=== PATIENT | female | born 1940 | race Caucasian/White ===

== ENCOUNTER 2020-07-26 12:15 | Emergency (ER) | payer MEDICARE, OTHER, SELFPAY ==
[2020-07-26 12:16] VITALS: BP 135/98; PULSE 100; RESP 18; O2SAT 96
[2020-07-26 12:23] VITALS: BP 161/89; PULSE 110; RESP 18; TEMP 36.9; O2SAT 95; BMI 18.0
--- NOTE | 2020-07-26 12:29 | CT_ITS ---
WS: [id number] CT ABDOMEN PELVIS TECHNIQUE: Contrast-enhanced CT of the abdomen and pelvis with coronal and sagittal reformatted image s. CLINICAL INFORMATION: abd pain COMPARISON: None. DLP: 234.[address] scans at [facility] use at least one of these dose optimization techniques: automat ed exposure control; mA and/or kV adjustment per patient size (includes targeted exams where dose is matched to clinical indication); or iterative reconstruction. FINDINGS: Mild thickening and induration involving the sigmoid colon suspicious for mild acute divert iculitis. No evidence of small large bowel obstruction. Mass effect on the sigmoid colon from the pre sumed large left calcified uterine fibroid. Mild diffuse fatty infiltration of the liver. Portal vein and splenic vein are patent. Normal spleen. Normal GE junction. Slight hazy groundglass infiltrates in the left lower lobe and lingula. Slight a telectasis with slight groundglass infiltrates right lower lobe. Adrenal glands are normal. Normal renal parenchymal enhancement. No hydronephrosis. Tiny left renal c yst. Normal gallbladder. Mild aortic calcification. Normal caliber abdominal aorta. Large calcified fibroid in the pelvis measuring 6.5 x 5.1 x 5.1 CM AP by transverse by craniocaudal. Left to right mass effect on the endometrium and cervix. Fluid in the endometrial canal. Associated mass effect on the bladder. No evidence of small or large bowel obstruction. No periaortic or inguinal lymphadenopathy. No pelvic lymphadenopathy. Grade 1 anterolisthesis L4 on L5 measuring 7 [address]/CT abdomen pelvis w con* [id number] IMPRESSION: 1. Mild thickening and induration involving the sigmoid colon consistent with mild acute diverticulitis. 2. Large calcified mass in the pelvis likely uterine fibroid measuring 5.1 x 6 .5 x 5.1 CM. Mass effect on the uterus and cervix left to right. Fluid in the e ndometrial canal. Pelvic findings can be followed up with ultrasound. 3. Osteoporosis 4. Slight hazy groundglass infiltrates and atelectasis in the lung bases. Yvette elation for pneumonitis. 5. Grade 1 anterolisthesis L4 on L5 with moderate central canal stenosis. Notified Janis Wen MD at 07/26/2020 2:12 PM.
--- NOTE | 2020-07-26 12:40 | ED_ITS ---
HPI - General Adult General: Chief complaint: General Medical Stated complaint: vaginal/rectal bleeding Time Seen by Provider: 07/26/20 12:29 Source: patient Mode of arrival: ambulatory Limitations: no limitations History of Present Illness: HPI narrative: 79-year-old female states she has had some blood in her stool starting today. States it is a small amount and is bright red. She does have a history of hemorrhoids. She denies any worsening or improving factors. Patient denies any abdominal pain. She is scheduled for an outpatient CT today at 1. Denies any fevers. Associated symptoms: Deny chest pain, dyspnea, headache(s) or rash Review of Systems Const: Denies: fever(s), chills, body aches or change in appetite Eyes: Denies: blurry vision or eye discomfort ENMT: Denies: throat pain or dental pain Card: Denies: chest pain Resp: Denies: dyspnea GI: Reports: hematochezia : Denies: dysuria Musc: Denies: neck pain or back pain Skin/Breast: Denies: rash Neuro: Denies: headache(s) Psych: Denies: depression Jonathan/Lymph: Denies: easy bruising All/Imm: Denies: urticaria PFSH ED PFSH: Social History (Updated 07/26/20 @ 12:27 by Aamir Connell RN) Smoking and tobacco status: never smoked Alcohol intake: never Substance/Drug Use: never Physical Exam Const: COMMON NORMALS: no acute distress, patient oriented x3 and healthy appearing HENMT: COMMON NORMALS: normocephalic and atraumatic HEAD & SCALP: normocephalic and atraumatic Eye: COMMON NORMALS: Equal, round and reactive pupils present and EOMs intact bilaterally PUPIL: Yes Equal, round and reactive pupils present Neck/C-Spine: COMMON NORMALS: full ROM and supple Chest: COMMONS NORMALS: normal inspection of the chest and normal palpation of entire chest wall Resp: COMMON NORMALS: normal respiratory effort, No retractions, No use of accessory muscles and clear to auscultation bilaterally AUSCULTATION: clear to auscultation bilaterally Cardio: COMMON NORMALS: regular rate, regular rhythm and No murmurs present (Cardio) RATE: regular rate RHYTHM: regular rhythm GI: COMMON NORMALS: Normal to inspection, nondistended, normoactive bowel sounds present, Soft to palpation, non-tender and no masses PALPATION: Yes Soft to palpation : OTHER: Rectal hemorrhoids noted with very slight amount of blood from them Extremity: COMMON NORMALS: normal to inspection and full ROM Neuro: COMMON NORMALS: patient oriented x3, moves all extremities and no focal motor deficits Psych: COMMON NORMALS: mental status grossly normal, Normal thought process present and cooperative THOUGHT PROCESS: Normal thought process present Skin: COMMON NORMALS: no rashes or lesions noted and no wounds GENERAL SKIN EXAM: no rashes or lesions noted Course Vital Signs: Vital signs: Vital Signs Temperature 98.4 F 07/26/20 12:23 Pulse Rate 101 H 07/26/20 12:59 Respiratory Rate 16 07/26/20 12:59 Blood Pressure 137/81 07/26/20 12:59 Pulse Oximetry 96 07/26/20 12:59 MDM - General Adult MDM Narrative: Medical decision making narrative: Shae presents here with rectal bleeding likely from her hemorrhoid. She has no signs of large amount of bleeding and hemoglobin is normal. CT shows mild diverticulitis we will start her on Augmentin. She also has a pelvic mass informed her she needs to follow- up with PCP with. She understands and agrees to plan. She is to return if worsening. Lab Data: Labs: Lab Results 07/26/20 07/26/20 Range/Units 12:50 12:50 WBC 13.0 H (4.0-10.0) 10^3/ uL RBC 3.75 L (4.1-5.3) 10^6/u L Hgb 10.9 L (11.5-15.3) g/dL Hct 32.7 L (37.0-47.0) % MCV 87.2 (81-99) fL MCH 29.1 (28.0-34.0) pg MCHC 33.3 (30.0-36.0) g/dL RDW 12.3 (12.1-15.1) % Plt Count 475 H (130-400) 10^3/c mm MPV 8.3 (7.4-10.4) fL Neut % (Auto) 76.7 % Lymph % (Auto) 12.9 % [place] % (Auto) 9.5 % Eos % (Auto) 0.1 % Baso % (Auto) 0.3 % Neut # (Auto) 9.97 H (1.8-7.7) 10^3/u L Lymph # (Auto) 1.7 (0.8-4.8) 10^3/u L [place] # (Auto) 1.2 H (0.2-0.9) 10^3/u L Eos # (Auto) 0.0 (0.0-0.8) 10^3/u L Baso # (Auto) 0.0 (0.0-0.1) 10^3/u L Nucleated RBC % (a uto) 0 % Nucleated RBCs # 0.0 /100WBC Sodium 130 L (136-145) mmol/L Potassium 3.6 (3.5-5.1) mmol/L Chloride 93 L (98-107) mmol/L Carbon Dioxide 27 (22-29) mmol/L Anion Gap 13.6 (5-19) BUN 8 (8-23) mg/dL Creatinine 0.5 (0.5-0.9) mg/dL GFR Calculation Not Reportable Glucose 111 (65-115) mg/dL Calculated Osmolal ity 269 L (285-295) mOsm/k g Calcium 8.7 (8.5-10.5) mg/dL Total Bilirubin 0.5 (0.15-1.2) mg/dL AST 37 H (0-32) U/L ALT 43 H (0-33) U/L Alkaline Phosphata se 83 (35-105) IU/L Total Protein 6.1 L (6.6-8.7) g/dL Albumin 3.1 L (3.5-5.2) g/dL Globulin 3.0 (1.3-4.6) g/dL Imaging Data^: CT Abd/Pel: Attestation: I personally reviewed and interpreted this imaging study as follows: Radiologist's impression: [address] [address] [address] Scan Report Signed Patient: Shae Wong Unit #: [id number] : 1940 Age/Sex: 79 / F ADM Date: 07/26/20 Loc: ER Room/Bed: Attending Dr: Ordering Provider/Ordering MD: Janis Wen MD Date of Service: 07/26/20 Procedure(s): CT abdomen pelvis w con* [id number] Accession Number(s): [id number] Report Number: [id number] WS: [id number] CT ABDOMEN PELVIS TECHNIQUE: Contrast-enhanced CT of the abdomen and pelvis with coronal and sagittal reformatted images. CLINICAL INFORMATION: abd pain COMPARISON: None. DLP: 234.[address] scans at [facility] use at least one of these dose optimization techniques: automated exposure control; mA and/or kV adjustment per patient size (includes targeted exams where dose is matched to clinical indication); or iterative reconstruction. FINDINGS: Mild thickening and induration involving the sigmoid colon suspicious for mild acute diverticulitis. No evidence of small large bowel obstruction. Mass effect on the sigmoid colon from the presumed large left calcified uterine fibroid. Mild diffuse fatty infiltration of the liver. Portal vein and splenic vein are patent. Normal spleen. Normal GE junction. Slight hazy groundglass infiltrates in the left lower lobe and lingula. Slight atelectasis with slight groundglass infiltrates right lower lobe. Adrenal glands are normal. Normal renal parenchymal enhancement. No hydronephrosis. Tiny left renal cyst. Normal gallbladder. Mild aortic calcification. Normal caliber abdominal aorta. Large calcified fibroid in the pelvis measuring 6.5 x 5.1 x 5.1 CM AP by transverse by craniocaudal. Left to right mass effect on the endometrium and cervix. Fluid in the endometrial canal. Associated mass effect on the bladder. No evidence of small or large bowel obstruction. No periaortic or inguinal lymphadenopathy. No pelvic lymphadenopathy. Grade 1 anterolisthesis L4 on L5 measuring 7.[address]/CT abdomen pelvis w con* [id number] IMPRESSION: 1. Mild thickening and induration involving the sigmoid colon consistent with mild acute diverticulitis. 2. Large calcified mass in the pelvis likely uterine fibroid measuring 5.1 x 6.5 x 5.1 CM. Mass effect on the uterus and cervix left to right. Fluid in the endometrial canal. Pelvic findings can be followed up with ultrasound. 3. Osteoporosis 4. Slight hazy groundglass infiltrates and atelectasis in the lung bases. Correlation for pneumonitis. 5. Grade 1 anterolisthesis L4 on L5 with moderate central canal stenosis. Discharge Plan Discharge Patient Disposition: Home Clinical Impression: Diverticulitis, Pelvic mass Hemorrhoid Qualifiers: Hemorrhoid type: unspecified Qualified Code(s): K64.9 - Unspecified hemorrhoids Condition: Stable Prescriptions: New Augmentin 875-125 mg tablet 1 tab PO BID Qty: 14 RF: 0 No Action Multiple Vitamins Tablet 1 tab PO DAILY RF: 0 atorvastatin 10 mg tablet 10 mg PO DAILY RF: 0 meloxicam 15 mg tablet 15 mg PO DAILY RF: 0 omeprazole 20 mg capsule,delayed release(DR/EC) 20 mg PO DAILY RF: 0 Tylenol 1 tab PO PRN RF: 0 Discharge Orders: Discharge Order (Routine); Ordered 07/26/20 Ordered By: Janis Wen Referrals: Ruben Arnold MD [Primary Care Provider] - 1-3 days Discharge Diet: Advance as tolerated Discharge Activity: Resume usual activity Patient Instructions: Diverticulitis (ED), Hemorrhoids (ED) Coding Level of Care Code ED Carbon Paper Coating Supervisor for Chg Fwd Exam Comprehensive
[2020-07-26 12:58] LABS: Basophils % 0.3 %; Eosinophils % 0.1 %; Hematocrit 32.7 % (37.0-47.0); Hemoglobin 10.9 g/dL (11.5-15.3); Lymphocytes # 1.7 10^3/uL (0.8-4.8); Lymphocytes % 12.9 %; Mean Corpuscular HGB Conc 33.3 g/dL (30.0-36.0); Mean Corpuscular Hemoglobin 29.1 pg (28.0-34.0); Mean Corpuscular Volume 87.2 fL (81-99); Mean Platelet Volume 8.3 fL (7.4-10.4); Monocytes # 1.2 10^3/uL (0.2-0.9); Monocytes % 9.5 %; Neutrophils # 9.97 10^3/uL (1.8-7.7); Neutrophils % 76.7 %; Nucleated Red Blood Cells % 0 %; Platelet Count 475 10^3/cmm (130-400); Red Blood Count 3.75 10^6/uL (4.1-5.3); Red Cell Distribution Width 12.3 % (12.1-15.1)
[2020-07-26 12:59] VITALS: BP 137/81; PULSE 101; RESP 16; O2SAT 96
[2020-07-26 13:15] LABS: Alanine Aminotransferase 43 U/L (0-33); Albumin Level 3.1 g/dL (3.5-5.2); Alkaline Phosphatase 83 IU/L (35-105); Anion Gap 13.6 (5-19); Aspartate Amino Transferase 37 U/L (0-32); Blood Urea Nitrogen 8 mg/dL (8-23); Calcium 8.7 mg/dL (8.5-10.5); Carbon Dioxide 27 mmol/L (22-29); Chloride 93 mmol/L (98-107); Creatinine Clr Calc Pharmacy 45.9273; Glucose 111 mg/dL (65-115); Osmolality Calculated 269 mOsm/kg (285-295); Potassium 3.6 mmol/L (3.5-5.1); Sodium 130 mmol/L (136-145); Total Bilirubin 0.5 mg/dL (0.15-1.2); Total Protein 6.1 g/dL (6.6-8.7)
[2020-07-26] MEDS: iohexol 300 mg/mL 100 mL Btl IV (13:41)
[2020-07-26 14:30] VITALS: BP 133/82; PULSE 96; RESP 16; TEMP 36.6; O2SAT 96
== END 2020-07-26 14:33 | disposition home or self-care (01) ==
PROVIDERS: Emergency Provider Emergency Medicine; Family Provider Family Medicine; PCP Family Medicine
DX: K57.92 Diverticulitis of intestine, part unspecified, without perforation or abscess without bleeding (principal); R19.00 Intra-abdominal and pelvic swelling, mass and lump, unspecified site; K64.9 Unspecified hemorrhoids
CPT/HCPCS: 12345; 74177; 80053; 85025; 99282; 99283; Q9967

== ENCOUNTER 2020-10-06 04:45 | Observation (INO) | payer MEDICARE, OTHER, SELFPAY ==
[2020-10-06] VITALS (15 sets, daily range): BP systolic 107–137; BP diastolic 59–77; PULSE 89–116; RESP 16–18; TEMP 36.7–37.1; O2SAT 94–97; BMI 18.8
--- NOTE | 2020-10-06 04:55 | CTR_ITS ---
PROCEDURE INFORMATION: Exam: CT Abdomen And Pelvis With Contrast Exam date and time: 10/06/2020 5:47 AM Age: 79 years old Clinical indication: Abdominal pain; Generalized TECHNIQUE: Imaging protocol: Computed tomography of the abdomen and pelvis with intravenous contrast. Radiation optimization: All CT scans at this facility use at least one of these dose optimization techniques: automated exposure control; mA and/or kV adjustment per patient size (includes targeted exams where dose is matched to clinical indication); or iterative reconstruction. Contrast material: OMNI 300; Contrast volume: 75 ml; Contrast route: INTRAVENOUS (IV); COMPARISON: CT abdomen pelvis w con* [id number] 07/26/2020 1:34 PM RADIATION DOSE METRICS: Total DLP (mGy-cm): 194.75 FINDINGS: Liver: Fatty change is present in the liver which is enlarged measuring 21 cm in length. No mass. Gallbladder and bile ducts: Normal. No calcified stones. No ductal dilation. Pancreas: Normal. No ductal dilation. Spleen: Normal. No splenomegaly. Adrenal glands: Normal. No mass. Kidneys and ureters: Normal. No hydronephrosis. Stomach and bowel: Unremarkable. No obstruction. Large amount of fecal residue is present in the colon. Appendix: The appendix is not discretely seen. Intraperitoneal space: Unremarkable. No free air. No significant fluid collection. Vasculature: Calcifications are noted. No abdominal aortic aneurysm. Lymph nodes: Unremarkable. No enlarged lymph nodes. Urinary bladder: Unremarkable as visualized. Reproductive: A large calcified fibroid is seen in the uterus measuring 7 x 5 cm. Bones/joints: Degenerative changes and levoscoliosis is present. No acute fracture. Soft tissues: Unremarkable. CT/CT abdomen pelvis w con* [id number] IMPRESSION: 1. No acute findings. 2. Hepatomegaly with fatty change is again seen. 3. A calcified fibroid is seen in the uterus, unchanged. 4. Constipation is present. 5. Degenerative changes with levoscoliosis is seen in the lumbar spine Radiation Dose CTDIVOL = (mGy): DLP = 194.75 (mGy-cm)
--- NOTE | 2020-10-06 04:56 | ECG_ITS ---
[facility] Test Date: 2020-10-06 Pat Name: Shae Wong Department: Room: Gender: Female Supervisor Post Wave: : 1940 Requested By: Nga Cardoso Order Number: [id number] Joceline MD: Jahaira Courtney M.D. Measurements Intervals [place] Rate: 106 P: 61 MI: 127 QRS: 8 QRSD: 109 T: 66 QT: 326 QTc: 434 Interpretive Statements SINUS TACHYCARDIA ABNORMAL RHYTHM ECG No previous ECG available for comparison Electronically Signed On 10-06-2020 19:14:08 SPEEDOMETER MECHANIC by Jahaira Courtney M.D. [id number]
--- NOTE | 2020-10-06 04:58 | W.ED.GENADLT ---
HPI - General Adult General: Chief complaint: General Medical Stated complaint: bleeding hemorrhoids Time Seen by Provider: 10/06/20 04:46 Source: patient and EMS Mode of arrival: EMS Limitations: altered mental status (Dementia) History of Present Illness: HPI narrative: Shae is a very nice 79-year-old female brought in by EMS with report of bleeding hemorrhoids. EMS reports family called them because the patient was having bleeding from her hemorrhoids intermittently throughout the night. No family is here at this time and all history is taken from EMS. The patient has dementia and when asked straightforward questions she seems to be confused and asks me questions about where she is at. Patient was noted to be tachycardic in route but not hypotensive. EMS noted blood in a chair the patient was sitting we did not undress her to evaluate for the bleeding. IV was established in route. All further history is taken from old charts. Review of Systems General: Reports: ROS unobtainable due to mental status (Dementia) PFS ED PFSH: Medical History (Updated 10/06/20 @ 05:00 by Nga Farfan) Dementia Diverticulosis GERD (gastroesophageal reflux disease) Hyperlipidemia Social History (Updated 07/26/20 @ 12:27 by Aamir Connell RN) Smoking and tobacco status: never smoked Alcohol intake: never Physical Exam Const: COMMON NORMALS: no acute distress, no limitations and alert GENERAL APPEARANCE: cooperative HENMT: COMMON NORMALS: normocephalic, atraumatic, external ears normal, EAC's normal and Normal external nose present HEAD & SCALP: normal to inspection, normocephalic and atraumatic FACE & SINUS: normal facial exam and face symmetric NOSE: Normal external nose present and Normal nares present EXTERNAL EAR: Yes external ears normal EXTERNAL AUDITORY CANAL: EAC's normal MOUTH: Normal oral and palatal mucosa present, lip normal and tongue normal Eye: COMMON NORMALS: Equal, round and reactive pupils present and conjunctivae normal GENERAL EYE: appearance normal, both eyes and all related structures ALIGNMENT: Yes alignment normal PERIORBITAL: periorbital findings normal EYELID: eyelids normal CONJUNCTIVA: Yes conjunctivae normal SCLERA: sclerae normal PUPIL: Yes Equal, round and reactive pupils present Neck/C-Spine: COMMON NORMALS: full ROM, no lymphadenopathy, supple, no meningeal signs and no JVD GENERAL: Yes normal visual inspection and Yes trachea midline Chest: COMMONS NORMALS: normal inspection of the chest and normal palpation of entire chest wall Resp: COMMON NORMALS: normal respiratory effort, No retractions, No use of accessory muscles and clear to auscultation bilaterally EFFORT & INSPECTION: Yes able to speak in complete sentences and Yes symmetric chest movement AUSCULTATION: clear to auscultation bilaterally, no crackles, no rales, no rhonchi and no wheezes Cardio: COMMON NORMALS: no JVD, regular rate, regular rhythm, S1 normal heart sound present and S2 normal heart sound present RATE: regular rate RHYTHM: regular rhythm HEART SOUNDS: S1 normal heart sound present, S2 normal heart sound present, no click, no gallops, no murmurs and no rubs GI: COMMON NORMALS: Soft to palpation and No hepatosplenomegaly present PALPATION: Yes Soft to palpation, Yes Tenderness to palpation present (GI) (Mild bilaterally in the lower quadrants without rebound or guarding.), No Guarding due to palpation present (GI), No Rigid due to palpation, Yes No hepatosplenomegaly present, No Hernia present, No Palpable mass present and No Pulsatile mass present RECTAL EXAM: normal sphincter tone, heme positive stool gross blood, External hemorrhoid(s) present (Noninflamed, nontender and no active bleeding), No Rectal prolapse and Laceration(s) present (GI) OTHER: No evidence of bleeding from external hemorrhoids. Rectal exam revealed light brown stool mixed with large amounts of bright red blood : COMMON NORMALS: Yes no CVA tenderness BLADDER/KIDNEY EXAM: Yes no CVA tenderness EXTERNAL FEMALE EXAM: No Hernia present Back/Pelvis: COMMON NORMALS: no CVA tenderness, thoracic and lumbar spine normal to inspection, no thoracic nor lumbar tenderness and thoraco-lumbar ROM normal Extremity: COMMON NORMALS: normal to inspection, full ROM, capillary refill normal, no joint enlargement, no clubbing, cyanosis or edema and no calf tenderness Neuro: COMMON NORMALS: CN's II-XII intact bilaterally, moves all extremities, no focal motor deficits and no sensory deficits noted SENSORIUM/ORIENTATION: Yes alert MENINGEAL SIGNS: Yes no meningeal signs SPEECH: speech normal Skin: COMMON NORMALS: no rashes or lesions noted, turgor normal, no jaundice, no petechiae and no mottling GENERAL SKIN EXAM: no rashes or lesions noted and turgor normal Course Vital Signs: Vital signs: Vital Signs Temperature 98.1 F 10/06/20 04:45 Pulse Rate 116 H 10/06/20 04:45 Respiratory Rate 18 10/06/20 04:45 Blood Pressure 122/77 10/06/20 04:45 Pulse Oximetry 95 10/06/20 04:45 MDM - General Adult Lab Data: Attestation: I reviewed the patient's lab results. EKG Data^: EKG 1: Attestation: I personally reviewed and interpreted this EKG as follows: EKG interpretation date: 10/06/20 EKG interpretation time: 05:01 Interpretation: Sinus tachycardia 106 beats a minute, normal axis, no blocks, normal intervals, no acute ST or T wave changes. Discharge Plan Discharge Prescriptions: No Action Multiple Vitamins Tablet 1 tab PO DAILY RF: 0 atorvastatin 10 mg tablet 10 mg PO DAILY RF: 0 meloxicam 15 mg tablet 15 mg PO DAILY RF: 0 omeprazole 20 mg capsule,delayed release(DR/EC) 20 mg PO DAILY RF: 0 Tylenol 1 tab PO PRN RF: 0 Augmentin 875-125 mg tablet 1 tab PO BID Qty: 14 RF: 0 Coding Level of Care Code ED Tufting Machine Operator for Chg Fwd Exam Comprehensive
--- NOTE | 2020-10-06 05:07 | PC.NURSE ---
Nurse at bedside
[2020-10-06 05:12] LABS: INR 0.99 (0.8-1.2)
[2020-10-06 05:13] LABS: Partial Thromboplastin Time 28.8 SECONDS (23.9-36.7)
[2020-10-06 05:24] LABS: Alanine Aminotransferase 13 U/L (0-33); Albumin Level 2.9 g/dL (3.5-5.2); Alkaline Phosphatase 126 IU/L (35-105); Anion Gap 15.7 (5-19); Aspartate Amino Transferase 14 U/L (0-32); Blood Urea Nitrogen 15 mg/dL (8-23); Calcium 8.7 mg/dL (8.5-10.5); Carbon Dioxide 27 mmol/L (22-29); Chloride 91 mmol/L (98-107); Creatinine Clr Calc Pharmacy 46.7305; Globulin 2.8 g/dL (1.3-4.6); Glucose 143 mg/dL (65-115); Osmolality Calculated 273 mOsm/kg (285-295); Potassium 3.7 mmol/L (3.5-5.1); Sodium 130 mmol/L (136-145); Total Protein 5.7 g/dL (6.6-8.7)
[2020-10-06 05:28] LABS: Troponin(5th) Baseline 21 ng/L (0-10)
[2020-10-06 05:30] LABS: Basophils # 0.2 10^3/uL (0.0-0.1); Basophils % 0.7 %; Hematocrit 32.1 % (37.0-47.0); Hemoglobin 10.2 g/dL (11.5-15.3); Lymphocytes # 2.7 10^3/uL (0.8-4.8); Lymphocytes % 12.5 %; Mean Corpuscular HGB Conc 31.8 g/dL (30.0-36.0); Mean Corpuscular Hemoglobin 25.6 pg (28.0-34.0); Mean Corpuscular Volume 80.7 fL (81-99); Mean Platelet Volume 8.3 fL (7.4-10.4); Monocytes # 1.2 10^3/uL (0.2-0.9); Monocytes % 5.7 %; Neutrophils # 17.35 10^3/uL (1.8-7.7); Neutrophils % 80.5 %; Nucleated Red Blood Cells % 0 %; Platelet Count 660 10^3/cmm (130-400); Red Blood Count 3.98 10^6/uL (4.1-5.3); Red Cell Distribution Width 15.8 % (12.1-15.1); White Blood Count 21.6 10^3/uL (4.0-10.0)
[2020-10-06 05:32] LABS: Add Urine Microscopic? NO
[2020-10-06] MEDS: pantoprazole 40 mg SDV 80 MG IVP (05:35)
[2020-10-06] MEDS: sodium chloride 0.9% 1,000 ML 100 ML IV (05:37)
--- NOTE | 2020-10-06 05:40 | PC.NURSE ---
Orthostatic blood pressure order on hold per Dr GUARDADO at [id number]
[2020-10-06] MEDS: iohexol 300 mg/mL 100 mL Btl IV (05:48)
[2020-10-06 05:53] LABS: Bilirubin Urine 1+ (Negative); Blood Urine Neg (Negative); Glucose Urine UA Norm (Normal); Ketones Urine 1+ (Negative); Leukocyte Esterase Urine Negative (Negative); Nitrate Urine Negative (Negative); Protein Urine Neg (Negative); Specific Gravity, Urine 1.015 (1.005-1.030); Urine Appearance Clear (CLEAR); Urine Color Yellow (Yellow); Urobilinogen Urine 4 mg/dL (Negative); pH Urine 6.5 (5-7)
[2020-10-06] MEDS: piperacillin-tazobactam 3.375 GM in sodium chloride 0.9% (plus) 50 ML IV ×2 (06:00→12:02)
--- NOTE | 2020-10-06 06:56 | ECG_ITS ---
[facility] Test Date: 2020-10-06 Pat Name: Shae Wong Department: Room: Gender: Female Lighthouse Keeper: : 1940 Requested By: Nga Cardoso Order Number: [id number] Joceline MD: Jahaira Courtney M.D. Measurements Intervals [place] Rate: 96 P: 57 MD: 128 QRS: 8 QRSD: 85 T: 61 QT: 346 QTc: 439 Interpretive Statements SINUS RHYTHM NONSPECIFIC T-WAVE ABNORMALITY Compared to ECG 10/06/2020 05:01:04 T-wave abnormality now present Sinus tachycardia no longer present Electronically Signed On 10-06-2020 19:29:56 BLASTING HELPER by Jahaira Courtney M.D. [email or web address] [email or web address] [id number]
[2020-10-06] MEDS: D5-NS 0.45% + KCL 20 mEq 20 MEQ/1,000 ML BAG 100 MEQ IV (08:48)
--- NOTE | 2020-10-06 09:38 | PC.CHAP ---
Pastoral Care Encounter/Spiritual Assessment Type of Contact [] Declined box worker visit [] Patient/Family/Request visit [] Outpatient visit [] Follow-up visit [] Physician referral [] Code/Alert [] Routine visit [] Staff referral [] Actively dying [x] Patient sleeping [] Family support [] [] Out of room [] Palliative care [] [] Receiving care in room [] Pre-surgical visit [] Trauma [] Long length of stay [] ICU visit [] Other: Relational/Emotional Strength [] Patient feels connected with others/family/visitors/staff [] Distress [] Loneliness/isolation [] Abandonment Spirituality of Patient [] Person of Shanta [] Attends [employer] of their Shanta [] Believes in Prayer [] Reads Bible or Lutheran materials [] There are Spiritual issues to be addressed Tire Fixer Interventions [] Prayer [] Active listening [] Non-anxious presence [] Spiritual/emotional support [] Crisis/trauma care [] Spiritual counseling [] Bereavement support [] Provided bereavement packet [] Provided Bible/devotional materials [] Provided toy/stuffed animal, coloring book to patient or family member [] Provided Communion [] Anointing/[place] [] Salvation [] Completed spiritual assessment [] Other: Impact on Illness or Injury [] Angry [] Fearful [] Anxious [] Often cries [] Exhaustion [] Unable to work [] Unable to attend congregation [] Unable to walk/stand [] Unable to read [] Unable to drive [] Unable to eat/drink [] Unable to sleep [] Unable to be with family [] Patient intubated [] Other: Summary Time spent with patient
--- NOTE | 2020-10-06 10:30 | P.HP_ITS ---
Providers/Chief Complaint Admitting Physician: Mookie Rodriguez MD Primary Care Provider: Ruben Arnold MD Chief Complaint: bleeding hemorrhoids History of Present Illness Shae Wong is a 79 year old female who presents to the emergency department with history of some blood in her stool. Patient has significant dementia and it is difficult to get further history from her. Apparently she was tachycardic in the ER but otherwise stable. In the emergency department they noted brown stool, with bright red blood mixed in. Family reports they did not really have any concerns with her until last night. At that time she had quite a bit of blood with stool. She occasionally will have some bleeding from a hemorrhoid which they are treating but none mixed in with stool. She has been constipated. She has not had any vomiting, fever, Covid. Family believes she had a colonoscopy over 5 years ago that showed only diverticuli Review of Systems General: Reports: ROS unobtainable due to mental status (Unable to obtain secondary to patient's dementia) Medications/Allergies Home Medications Medication Instructions Recorded Confirmed Last Taken Type atorvastatin 10 mg PO DAILY@07/26/20 10/06/20 07/25/20 History meloxicam 15 mg PO DAILY@07/26/20 10/06/20 07/25/20 History hydrocortisone [Anusol-HC] 1 applic [place] BID@10/06/20 10/06/20 Unknown History pantoprazole 40 mg PO BID@,17 10/06/20 10/06/20 Unknown History Allergies Allergy/AdvReac Type Severity Reaction Status Date / Time No Known Allergies Allergy Verified 07/26/20 12:45 PFSH Acute PFSH: Medical History (Updated 10/06/20 @ 10:47 by Rashad Acuna MD) Dementia Diverticulosis GERD (gastroesophageal reflux disease) Hemorrhoids Hyperlipidemia Family History (Updated 10/06/20 @ 10:43 by Rashad Acuna MD) Other Cancer Social History Smoking and tobacco status: never smoked Alcohol intake: never Supplemental PFSH Information: Denies history of surgeries Vitals/I&O/Wt Last Vital Signs Temp 98.1 F 10/06/20 08:00 Pulse 89 10/06/20 08:00 Resp 17 10/06/20 10:12 BP 119/71 10/06/20 08:00 Pulse Ox 96 10/06/20 08:00 Weight last 48 hrs Weight 49.895 kg Physical Exam Narrative: EXAM NARRATIVE: General exam is a confused white female in no apparent distress believing the year to be somewhere in the 1999 and the month of April. Very thin appearing HEENT: Pupils equally round. Arcus senilis present. Oropharynx clear. Neck is supple no lymphadenopathy thyromegaly Cardiovascular regular rate and rhythm, no murmur Lungs clear no wheezing or crackles Abdomen is soft with positive bowel sounds. No obvious hepatosplenomegaly was deferred Extremities show 1+ edema bilaterally Skin no rash Neuro no obvious focal deficits External rectal exam demonstrates some hemorrhoidal skin tags but no evidence of active bleeding and brown stool in vault. See exam done by ER as well. Data : 10/06/20 04:24 10/06/20 04:24 Other data: CT abdomen and pelvis demonstrated hepatomegaly, calcified fibroid in the uterus, significant constipation, DJD Urinalysis essentially negative A&P Assessment and plan (1) Rectal bleeding: May have been anal outlet bleeding. Appears to have stopped. Could be related to significant constipation. Cannot rule out other GI source such as malignancy, diverticular bleed, etc. Patient is on hospice secondary to dementia and family reports they do not want any invasive procedures. Status: Acute (2) Hyponatremia: Patient with slight amount of peripheral edema. Will initiate diet Check TSH, cortisol level Small dose of Lasix Repeat sodium tomorrow Status: Acute (3) Leukocytosis: White blood cell count elevated Concern of diverticulitis from the emergency department standpoint Placed on Zosyn Check chest x-ray Check micro and UA Status: Acute (4) Anemia: Repeat hemoglobin this afternoon, CBC tomorrow Discontinue meloxicam Status: Acute (5) Hyperglycemia: Check hemoglobin A1c Status: Acute (6) Dementia: Status: Acute Additional A&P Information History of GERD Hyperlipidemia DJD Allow natural SCDs for DVT prophylaxis We will discharge back home with hospice when appropriate Attestations Medical Necessity Statement*: Will need less than 2 midnight stay, for monitoring secondary to bleeding Time Spent in Patient Care: Greater than 35 minutes Coding Level of Care Code Acute Engineering Writer for Chg Fwd Diagnoses Rectal bleeding K62.5 Hyponatremia E87.1 Leukocytosis D72.829 Anemia D64.9 Hyperglycemia R73.9 Dementia F03.90
--- NOTE | 2020-10-06 10:54 | XR_ITS ---
WS: [id number] Portable AP upright chest, 10/06/2020 Clinical Data: leukocytosis Comparison: None. Findings: No nodules, masses or effusions are seen. The heart is normal. The pulmonary vascularity is not increased. No pneumonia or pneumothorax is seen. The aortic arch and descending aorta show calci fication and tortuosity. The diaphragms are flattened. There is contrast material in a left renal pel vis from a recent CT abdomen pelvis. XR/XR chest 1V portable [id number] Impression: Atherosclerosis and hyperinflation.
--- NOTE | 2020-10-06 10:56 | ECG_ITS ---
[facility] Test Date: 2020-10-06 Pat Name: Shae Wong Department: Room: 259 Gender: Female Sound Ranging Crewmember: : [id number] Requested By: Nga Cardoso Order Number: [id number] Joceline MD: Jahaira Courtney M.D. Measurements Intervals [place] Rate: 100 P: 53 ID: [id number] QRS: 19 QRSD: 102 T: 76 QT: 346 QTc: 447 Interpretive Statements SINUS TACHYCARDIA NONSPECIFIC T-WAVE ABNORMALITY ABNORMAL RHYTHM ECG Compared to ECG 10/06/2020 06:32:29 Sinus rhythm no longer present T-wave abnormality still present Electronically Signed On 10-06-2020 19:29:42 BUS GREASER by Jahaira Courtney M.D. [id number]
[2020-10-06] MEDS: FUROsemide 10 mg/mL SDV 2mL 20 MG IVP (12:20)
--- NOTE | 2020-10-06 12:43 | PC.NURSE ---
Notified Dr Acuna, helped pt to bathroom, gross amount of bright red blood with clots in patients depends and in toliet. BP 136/67 pulse 86 R 18. See new orders
[2020-10-06] MEDS: sodium chloride 0.9% 1,000 ML 50 ML IV (13:21)
[2020-10-06 13:27] LABS: Estmated Average Glucose 105; Hemoglobin A1C 5.3 % (4.0-6.0)
[2020-10-06 13:31] LABS: Thyroid Stimulating Hormone 4.06 uIU/mL (0.27-4.20)
[2020-10-06 13:51] LABS: Cortisol Random 30.97 ug/mL (2.47-19.5)
[2020-10-06 16:14] LABS: Urine Color Amber (Yellow)
[2020-10-06 16:15] LABS: Bilirubin Urine 1+ (Negative); Blood Urine 3+ (Negative); Glucose Urine UA Norm (Normal); Ketones Urine 1+ (Negative); Leukocyte Esterase Urine 2+ (Negative); Nitrate Urine Negative (Negative); Protein Urine 1+ (Negative); Urine Appearance Cloudy (CLEAR); Urobilinogen Urine 4 mg/dL (Negative); pH Urine 6.5 (5-7)
[2020-10-06 16:18] LABS: Add Urine Culture? Yes; Bacteria Urine 3+ /hpf; Squamous Epithelial Cell Urine 0-4 /hpf (0-5)
[2020-10-06 16:20] LABS: Hemoglobin 8.2 g/dL (11.5-15.3)
[2020-10-06] MEDS: pantoprazole DR 40 mg Tablet PO (17:40)
[2020-10-06] MEDS: cefdinir 300 MG CAPSULE PO (18:02)
[2020-10-07] VITALS (7 sets, daily range): BP systolic 82–116; BP diastolic 46–63; PULSE 92–138; RESP 15–18; TEMP 36.3–37.1; O2SAT 93–98
--- NOTE | 2020-10-07 06:10 | PC.NURSE ---
PATIENT BECAME VERY WEAK AND STARTED TO LOSE CONSCIOUSNESS WHILE ON BED SIDE COMMODE, WAS PASSING LARGE CLOTS AND BLOODY STOOL. PATIENT PLACED BACK INTO BED WITH MAX ASSIST, CONTINUED TO PASS BLOODY STOOL. PATIENTS NURSE AND THE CHILD LIFE THERAPIST WAS NOTIFIED AND ASSISTED WITH PATIENT CARE.
[2020-10-07] MEDS: pantoprazole DR 40 mg Tablet PO ×2 (06:39→17:05)
[2020-10-07 11:04] LABS: Glucose Point of Care 121 mg/dL (70-110)
[2020-10-07] MEDS: cefdinir 300 MG CAPSULE PO ×2 (11:26→17:05)
--- NOTE | 2020-10-07 11:40 | P.PN_ITS ---
Subjective Subjective: Interval history: Is a 79-year-old female who was admitted for blood in stool She was transitioned to comfort care. No acute events overnight. Patient reports that she is thirsty. Denies pain. Medications: Reviewed: Yes Vitals/I&O/Wt Last Vital Signs Temp 98.1 F 10/07/20 08:00 Pulse 138 H 10/07/20 08:00 Resp 17 10/07/20 08:00 BP 82/63 10/07/20 08:00 Pulse Ox 98 10/07/20 08:00 10/06/20 10/07/20 10/07/20 22:59 06:59 14:59 Output Total 400 / 400 Balance -400 / -100 Weight last 48 hrs Weight 110 lb Physical Exam Const: OTHER: Lethargic not in any acute distress arousable HENMT: OTHER: Oral mucosa dry Resp: COMMON NORMALS: normal respiratory effort and No retractions Cardio: COMMON NORMALS: regular rate and regular rhythm RATE: regular rate RHYTHM: regular rhythm GI: COMMON NORMALS: Normal to inspection, nondistended, normoactive bowel sounds present and Soft to palpation PALPATION: Yes Soft to palpation Neuro: SPEECH: speech normal Psych: COMMON NORMALS: speech normal ATTITUDE: Yes calm SPEECH: Yes normal speech Data : 10/06/20 16:10 10/06/20 04:24 A&P Assessment and plan (1) Dementia: Status: Acute (2) Hyperlipidemia: Status: Acute (3) GERD (gastroesophageal reflux disease): Status: Acute (4) Diverticulosis: Status: Acute (5) Rectal bleeding: Status: Acute (6) Hyponatremia: Status: Acute (7) Leukocytosis: Status: Acute (8) Anemia: Status: Acute (9) Hyperglycemia: Status: Acute Additional A&P Information Advance diet as possible As needed analgesics and anxiolytics Okay to increase family visitors Attestations Medical Necessity Statement*: Shae Wong's hospital stay will require greater than 2 midnights for comfort care Coding Level of Care Code Acute Ink Grinder for [facility] Fwd Diagnoses Dementia F03.90 Hyperlipidemia E78.5 GERD (gastroesophageal reflux disease) K21.9 Diverticulosis K57.90 Rectal bleeding K62.5 Hyponatremia E87.1 Leukocytosis D72.829 Anemia D64.9 Hyperglycemia R73.9
--- NOTE | 2020-10-07 17:29 | PC.NURSE ---
daughter in law daughter in law spoke with consumer loan underwriter about wanting to pass a long that her mother in law was going to have a colonoscopy done awhile back but there was compilations, they came to the conclusion that her bowels were twisted and they never followed up.
--- NOTE | 2020-10-08 03:21 | PC.NURSE ---
ANXIETY Keeps hollering out but doesn't know what she needs. Denies pain but is anxious. Repositioned but did not help. RN medicating with IV Ativan
[2020-10-08] MEDS: LORazepam 2 mg/mL INJ 1 mL 0.5 MG IVP ×2 (03:22→10:31)
[2020-10-08 04:00] VITALS: BP 117/63; PULSE 105; RESP 16; TEMP 36.8; O2SAT 95
[2020-10-08] MEDS: pantoprazole DR 40 mg Tablet PO (06:06)
--- NOTE | 2020-10-08 06:11 | PC.NURSE ---
SHIFT SUMMARY Has had confusion tonight. Rested first part of shift then awake most of second half. Was calling out for help but did not know what she wanted. Was medicated X1 with IV Ativan without much difference noted. Has been repositioned. Up to BSC to urinate No stools tonight.
[2020-10-08 07:40] VITALS: BP 117/60; PULSE 103; RESP 16; TEMP 36.7; O2SAT 95
[2020-10-08] MEDS: cefdinir 300 MG CAPSULE PO (08:40)
--- NOTE | 2020-10-08 10:43 | PC.CHAP ---
Pastoral Care Encounter/Spiritual Assessment Type of Contact [] Declined lead electrical engineer visit [] Patient/Family/Request visit [] Outpatient visit [X] Follow-up visit [] Physician referral [] Code/Alert [] Routine visit [] Staff referral [] Actively dying [] Patient sleeping [] Family support [] [] Out of room [] Palliative care [] [] Receiving care in room [] Pre-surgical visit [] Trauma [] Long length of stay [] ICU visit [] Other: Relational/Emotional Strength [X] Patient feels connected with others/family/visitors/staff [] Distress [] Loneliness/isolation [] Abandonment Spirituality of Patient [X] Person of Shanta [X] Attends Jainism of their Shanta [X] Believes in Prayer [X] Reads Bible or Episcopal materials [] There are Spiritual issues to be addressed Pediatric Pathologist Interventions [X] Prayer [X] Active listening [X] Non-anxious presence [] Spiritual/emotional support [] Crisis/trauma care [] Spiritual counseling [] Bereavement support [] Provided bereavement packet [] Provided Bible/devotional materials [] Provided toy/stuffed animal, coloring book to patient or family member [] Provided Communion [] Anointing/[place] [] Salvation [X] Completed spiritual assessment [] Other: Impact on Illness or Injury [] Angry [] Fearful [] Anxious [] Often cries [] Exhaustion [] Unable to work [] Unable to attend hindu [] Unable to walk/stand [] Unable to read [] Unable to drive [] Unable to eat/drink [] Unable to sleep [] Unable to be with family [] Patient intubated [] Other: Summary: Pt has some memory / dementia concerns as she repeatedly asks the same questions. Regardless, she welcomed prayer and the visit. Time spent with patient: 10 mins
[2020-10-08 11:26] VITALS: BP 115/64; PULSE 105; RESP 16; TEMP 37.1; O2SAT 94
--- NOTE | 2020-10-08 11:59 | PM.PN ---
Subjective Subjective: Interval history: Is a 79-year-old female who was admitted for blood in stool She was transitioned to comfort care. No acute events overnight. confused this AM, family at bedside. Medications: Reviewed: Yes Vitals/I&O/Wt Last Vital Signs Temp 98.7 F 10/08/20 11:26 Pulse 105 H 10/08/20 11:26 Resp 16 10/08/20 11:26 BP 115/64 10/08/20 11:26 Pulse Ox 94 10/08/20 11:26 10/07/20 10/08/20 10/08/20 22:59 06:59 14:59 Intake Total 50 / 1100 150 / 1250 240 / 240 Output Total 0 / 0 50 / 50 Balance 50 / 1100 100 / 1200 240 / 240 Physical Exam Const: OTHER: pleasant , confused HENMT: OTHER: Oral mucosa dry Resp: COMMON NORMALS: normal respiratory effort and No retractions Cardio: COMMON NORMALS: regular rate and regular rhythm RATE: regular rate RHYTHM: regular rhythm GI: COMMON NORMALS: Normal to inspection, nondistended, normoactive bowel sounds present and Soft to palpation PALPATION: Yes Soft to palpation Neuro: SPEECH: speech normal Psych: COMMON NORMALS: speech normal ATTITUDE: Yes calm SPEECH: Yes normal speech Data : 10/06/20 16:10 10/06/20 04:24 Micro: Microbiology 10/06/20 15:20 Urine Culture - Final Urine,Clean Catch A&P Assessment and plan (1) Dementia: Status: Acute (2) Hyperlipidemia: Status: Acute (3) GERD (gastroesophageal reflux disease): Status: Acute (4) Diverticulosis: Status: Acute (5) Rectal bleeding: Status: Acute (6) Hyponatremia: Status: Acute (7) Leukocytosis: Status: Acute (8) Anemia: Status: Acute (9) Hyperglycemia: Status: Acute Additional A&P Information Advance diet as possible As needed analgesics and anxiolytics Okay to increase family visitors Attestations Medical Necessity Statement*: Shae Wong's hospital stay will require greater than 2 midnights for comfort measure Coding Level of Care Code Acute Boot Lace Cutter Machine for g Fwd Diagnoses Dementia F03.90 Hyperlipidemia E78.5 GERD (gastroesophageal reflux disease) K21.9 Diverticulosis K57.90 Rectal bleeding K62.5 Hyponatremia E87.1 Leukocytosis D72.829 Anemia D64.9 Hyperglycemia R73.9
[2020-10-08] MEDS: LORazepam 2 mg/mL INJ 1 mL 1 MG IVP (13:52)
[2020-10-08 15:58] VITALS: BP 116/55; PULSE 103; RESP 15; TEMP 36.8; O2SAT 95
[2020-10-08 19:57] VITALS: BP 114/56; PULSE 96; RESP 16; TEMP 36.8; O2SAT 96
--- NOTE | 2020-10-08 22:29 | PC.NURSE ---
ROUNDING Has been quite confused. Has attempted getting OOB X2. To BSC each time saying she needed to use bathroom but each time had no output. Passing odorous gas. Asking for a cup of coffee. Assisted with drinking some cool coffee
[2020-10-09] VITALS (7 sets, daily range): BP systolic 109–135; BP diastolic 59–73; PULSE 105–122; RESP 15–18; TEMP 36.3–37.2; O2SAT 93–97
[2020-10-09] MEDS: LORazepam 2 mg/mL INJ 1 mL 1 MG IVP (03:55)
--- NOTE | 2020-10-09 04:03 | PC.NURSE ---
CONFUSION/RESTLESSNESS Has remained confused. Hollers out or sometimes does put on her call light. Wondering where she is and what is going on. Has not rested much. Medicated by RN with IV Ativan
[2020-10-09] MEDS: pantoprazole DR 40 mg Tablet PO ×2 (06:22→17:53)
--- NOTE | 2020-10-09 06:28 | PC.NURSE ---
CONFUSION/AGITATION Has not rested after the IV Ativan and is becoming agitated with nurses. Wanting to get OOB and go home. Is talking to people not in room and gets mad when they do not answer her.
[2020-10-09] MEDS: cefdinir 300 MG CAPSULE PO ×2 (08:00→17:53)
--- NOTE | 2020-10-09 10:10 | PC.SOCIAL ---
Pg 2 IMM Explained to pt's family, Pg 2 IMM. No questions voiced. Provided pt a copy. Signed, dated, & timed a copy & placed in chart.
--- NOTE | 2020-10-09 12:01 | PM.PN ---
Subjective Subjective: Interval history: Patient was comfortable this am Daughter in law at bedside. Comfortable No acute events overnight . Medications: Reviewed: Yes Vitals/I&O/Wt Last Vital Signs Temp 98.2 F 10/09/20 11:23 Pulse 116 H 10/09/20 11:23 Resp 15 10/09/20 11:23 BP 109/59 10/09/20 11:23 Pulse Ox 95 10/09/20 11:23 10/08/20 10/09/20 10/09/20 22:59 06:59 14:59 Intake Total 120 / 360 60 / 420 50 / 50 Output Total 100 / 225 Balance 120 / 235 -40 / 195 50 / 50 Physical Exam Narrative: EXAM NARRATIVE: General : Alert, Awake in NAD HEENT : Grossly unremarkable CVS : NSR CHEST : Non-labored respiration ABD : Non-distended EXT : No edema Data : 10/06/20 16:10 10/06/20 04:24 Micro: Microbiology 10/06/20 15:20 Urine Culture - Final Urine,Clean Catch A&P Assessment and plan (1) Dementia: Status: Acute (2) Hyperlipidemia: Status: Acute (3) GERD (gastroesophageal reflux disease): Status: Acute (4) Diverticulosis: Status: Acute (5) Rectal bleeding: Status: Acute (6) Hyponatremia: Status: Acute (7) Leukocytosis: Status: Acute (8) Anemia: Status: Acute (9) Hyperglycemia: Status: Acute Additional A&P Information No new labs since 10/06 Transitioned to Comfort care/Hospice CM/SW working on placement No changes to current management Hospice consult Attestations Medical Necessity Statement*: Will require further hospitalization until discharge placement arranged on hospice Time Spent in Patient Care: Greater than 35 minutes Coding Level of Care Code Acute Oil Rig Driller for g Fwd Diagnoses Dementia F03.90 Hyperlipidemia E78.5 GERD (gastroesophageal reflux disease) K21.9 Diverticulosis K57.90 Rectal bleeding K62.5 Hyponatremia E87.1 Leukocytosis D72.829 Anemia D64.9 Hyperglycemia R73.9
[2020-10-09 15:25] LABS: SARS Covid-2 Antigen Negative (Negative)
[2020-10-10] MEDS: LORazepam 0.5 mg Tablet PO (00:53)
[2020-10-10 04:00] VITALS: BP 124/68; PULSE 108; RESP 17; TEMP 36.3; O2SAT 96
[2020-10-10] MEDS: pantoprazole DR 40 mg Tablet PO (06:28)
[2020-10-10 08:00] VITALS: BP 131/63; PULSE 104; RESP 16; TEMP 36.9; O2SAT 96
[2020-10-10 09:11] VITALS: BP 131/63; PULSE 104; RESP 16; TEMP 36.9; O2SAT 96
[2020-10-10] MEDS: cefdinir 300 MG CAPSULE PO (09:40)
--- NOTE | 2020-10-10 11:33 | PM.DCS ---
Discharge Providers Date of Admission: 10/06/20 06:55 Date of Discharge: October 10, 2020 Attending Provider at Admission: Mookie Rodriguez MD Attending Provider at Discharge: Sally Worley Primary Care Provider: Ruben Arnold MD Diagnoses at Discharge Discharge Diagnosis (1) Dementia: Status: Acute (2) Hyperlipidemia: Status: Acute (3) GERD (gastroesophageal reflux disease): Status: Acute (4) Diverticulosis: Status: Acute (5) Rectal bleeding: Status: Acute (6) Hyponatremia: Status: Acute (7) Leukocytosis: Status: Acute (8) Anemia: Status: Acute (9) Hyperglycemia: Status: Acute Reason for Visit Reason for Visit: bleeding hemorrhoids Hospital Course Hospital Course 79-year-old female with a past medical history significant gastroesophageal reflux disease, hyperlipidemia, advanced dementia, diverticulosis and hemorrhoids who presented to the hospital with blood in her stool. patient reportedly had multiple episodes prior to arrival. Initial laboratory workup showed a WBC of 21.6, hemoglobin of 8.2, hematocrit 32.1 and a platelet count of 660. sodium 130, potassium 3.7, chloride 91, bicarb 27, BUN 15 and creatinine is 0.4. Glucose 143. Random cortisol of 30.9. CT abdomen pelvis was performed with contrast which did not show any acute findings. Shortly after admission patient's family had requested honor patient's wishes of no transfusions or any invasive workup. No repeat lab draws were obtained. Patient's care with transition to DNR comfort care. Hospitalization was prolonged due to placement arrangement. Patient was discharged hospice comfort care measures. All questions and concerns were addressed prior to discharge. Physical Exam Narrative: EXAM NARRATIVE: Alert awake orieted x 0 NAD CHEST : non-labored respiration ABD : non-distended appearing EXT : no edema Discharge Data Data Completed and Pending: Completed Studies During Hospitalization Category Date Time Status CT abdomen pelvis w con* [id number] Stat Cat Scan 10/06/20 04:55 Completed XR chest 1V amador ble [id number] Routine Exams 10/06/20 10:54 Completed Labs from last 24 hours 10/09/20 10/06/20 14:59 05:10 SARS-CoV-2 Ag (Rap id) Negative Crossmatch See Detail Vitals: Last Vital Signs Temp 98.4 F 10/10/20 09:11 Pulse 104 H 10/10/20 09:11 Resp 16 10/10/20 09:11 BP 131/63 10/10/20 09:11 Pulse Ox 96 10/10/20 09:11 Discharge Plan Discharge Patient Disposition: Hospice - Medical Facility Condition: Fair Prescriptions: New morphine concentrate 100 mg/5 mL (20 mg/mL) solution 5 mg PO Q6H Qty: 30 RF: 0 Lorazepam Intensol 2 mg/mL concentrate 0.25 mg PO Q8H PRN (Reason: agitation) Qty: 30 RF: 0 Continued atorvastatin 10 mg tablet 10 mg PO DAILY@07 RF: 0 pantoprazole 40 mg Tablet,Delayed Release (Dr/Ec) 40 mg PO BID@ RF: 0 Anusol-HC 2.5 % cream with perineal applicator 1 applic [place] BID@ RF: 0 Discontinued meloxicam 15 mg tablet 15 mg PO DAILY@ RF: 0 Discharge Orders: Discharge Order (Routine); Ordered 10/10/20 Ordered By: Sally Worley Referrals: Ruben Arnold MD [Primary Care Provider] - 4-7 days Discharge Diet: GI Soft Discharge Activity: Resume usual activity Discharge Attestations Time Spent in Discharge Care*: greater than 30 min Specific Discharge Activities: educating and/or supporting family/caregiver, discussing with case management manager/social workers/dc planners, documenting/other paperwork and evaluating patient/reviewing data Status at Discharge: Cognitive status at discharge: severely impaired cognition, Behavioral status at discharge: cooperative, Overall status at discharge: patient is back to baseline Quality Metrics Clinical Quality Measures During this hospital stay, did patient experience: None Coding Level of Care Code Acute Machine Binding Folder for g Fwd Diagnoses Dementia F03.90 Hyperlipidemia E78.5 GERD (gastroesophageal reflux disease) K21.9 Diverticulosis K57.90 Rectal bleeding K62.5 Hyponatremia E87.1 Leukocytosis D72.829 Anemia D64.9 Hyperglycemia R73.9
[2020-10-10 11:56] VITALS: BP 118/71; PULSE 112; RESP 16; TEMP 37.1; O2SAT 96
== END 2020-10-10 13:40 | disposition hospice, inpatient (51) ==
LOC: ER 05:59 → MEDSURG 07:12
PROVIDERS: Emergency Medicine; Internal Medicine; Admitting Provider Internal Medicine; Emergency Provider Family Medicine; PCP Family Medicine; Visit Provider Hospitalist
DX: F03.90 Unspecified dementia, unspecified severity, without behavioral disturbance, psychotic disturbance, mood disturbance, and anxiety (principal); E78.5 Hyperlipidemia, unspecified; K62.5 Hemorrhage of anus and rectum; E87.1 Hypo-osmolality and hyponatremia; D72.829 Elevated white blood cell count, unspecified; D64.9 Anemia, unspecified; R73.9 Hyperglycemia, unspecified; K21.9 Gastro-esophageal reflux disease without esophagitis; K57.90 Diverticulosis of intestine, part unspecified, without perforation or abscess without bleeding
CPT/HCPCS: 12345; 36415; 36416; 71045; 74177; 80053; 81001; 81003; 82533; 82962; 83036; 83605; 84443; 84484; 85018; 85025; 85610; 85730; 86850; 86900; 86920; 87086; 87426; 93005; 96361; 96365; 96366; 96374; 96375; 99283; 99285; C9113; G0378; J1940; J2060; J2543; J7030; Q9967